=== PATIENT | male | born 1955 | race Caucasian/White ===

== ENCOUNTER → 2017-08-29 | Outpatient (CLI) | payer MEDICAID | LOC: FIMAGING 09:23 | PROVIDERS: ATTEND Internal Medicine | DX: K44.9 Diaphragmatic hernia without obstruction or gangrene (principal); K21.9 Gastro-esophageal reflux disease without esophagitis ==

== ENCOUNTER → 2017-09-04 | Outpatient (CLI) | payer MEDICAID | LOC: FIMAGING 08:00 | PROVIDERS: ATTEND Internal Medicine | DX: R10.12 Left upper quadrant pain (principal) ==

== ENCOUNTER → 2018-06-11 | Outpatient (CLI) | payer MEDICAID ==
[~2018-06-11] MED LIST: IOPAMIDOL (ISOVUE 370) 100 ML BTL IV ONE
== END ==
LOC: FIMAGING 09:04
PROVIDERS: ATTEND Internal Medicine Cardiovascular Disease
DX: I48.91 Unspecified atrial fibrillation (principal)
CPT/HCPCS: Q9967

== ENCOUNTER 2018-06-18 11:04 | Observation (INO) | payer MEDICAID ==
[2018-06-18] MEDS ORDERED: NS 1,000 ML IV ONE (11:06)
[2018-06-18 11:47] LABS: PLATELET COUNT 243 10^3/uL (150-400)
[2018-06-18] MEDS ORDERED: LIDOCAINE 1% 300 MG/30 ML SDV ONE ×2 (12:02→13:26)
[2018-06-18] MEDS ORDERED: HEPARIN/DEXTROSE 25,000 UNIT/500 ML BAG ONE (12:02)
[2018-06-18] MEDS ORDERED: MIDAZOLAM 2 MG/2 ML VIAL IVP ONE (12:03)
[2018-06-18] MEDS ORDERED: IOPAMIDOL (ISOVUE-300) 100 ML BTL ONE (12:03)
[2018-06-18] MEDS ORDERED: HEPARIN 10,000 UNIT/10 ML MDV (1,000 UNIT/ML) ONE (12:03)
[2018-06-18] MEDS ORDERED: BUPIVACAINE 0.75% 10 ML SDV ONE (12:03)
--- NOTE | 2018-06-18 12:03 | PDANEPAE ---
ANE History of Present Illness 62 yo afib ablation ANE Past Medical History - Cardiovascular History Hx Hypertension: No Hx Arrhythmias: Yes Hx Chest Pain: Yes Hx Coronary Artery / Peripheral Vascular Disease: No Hx CHF / Valvular Disease: No Hx Palpitations: No - Pulmonary History Hx COPD: No Hx Asthma/Reactive Airway Disease: No Hx Recent Upper Respiratory Infection: No Hx Oxygen in Use at Home: No Hx Sleep Apnea: No ANE Review of Systems Review of Systems: - Exercise capacity METS (RN): 4 METS ANE Patient History - Allergies Allergies/Adverse Reactions: Penicillins Allergy (Mild, Verified 06/18/18 11:35) Other-Enter Comments black walnut Allergy (Unknown, Verified 12/08/14 15:25) Iodinated Contrast- Oral and IV Dye Allergy (Verified 06/18/18 11:36) Congestion hayfever Allergy (Intermediate, Uncoded 08/22/11 21:50) - Home Medications Home Medications: ALPRAZolam [Xanax 0.5 MG (*)] 0.5 mg PO HS PRN 06/18/18 [Last Taken Unknown] Anastrozole [Arimidex 1 mg (*)] 0.5 mg PO SUTH@12 06/18/18 [Last Taken 06/15/18] Aspirin [Aspirin 325 mg (*)] 325 mg PO DAILY@12 06/18/18 [Last Taken 06/17/18] Cetirizine [ZyrTEC 10 mg (*)] 10 mg PO HS PRN 06/18/18 [Last Taken Unknown] Cholecalciferol Vit D3 [Vitamin D3 (*)] 5,000 units PO DAILY@12 06/18/18 [Last Taken 06/17/18] Fluticasone Nasal [Flonase Nasal [place] (RX)] 1 sprays NASAL BID PRN 06/18/18 [ Last Taken 06/15/18] Herbals/Supplements -Info Only 1 ea PO DAILY 06/18/18 [Last Taken Unknown] Multivitamins [Multivitamin (*)] 1 each PO DAILY@12 06/18/18 [Last Taken ] Niacin [Niacin 500 mg (*)] 500 mg PO DAILY06 06/18/18 [Last Taken 06/17/18] Omeprazole 20 mg PO HS 06/18/18 [Last Taken 06/17/18] Testosterone [ANDROGEL 1% 5gm pkt (*)] 5 gm TD DAILY 06/18/18 [Last Taken ] Thyroid [Latta Thyroid 60 MG (*)] 60 mg PO DAILY06 06/18/18 [Last Taken ] Warfarin Sodium [Coumadin 5MG (*)] 5 mg PO SUMOTUWETHSA@21 06/18/18 [Last Taken 06/15/18] Warfarin Sodium [Coumadin 7.5MG (*)] 7.5 mg PO FR@06/18/18 [Last Taken ] - NPO status NPO Status: no food or drink >8 hours - Smoking Hx Smoking Status: Never smoked ANE Labs/Vital Signs - Labs Result Diagrams: 06/18/18 11:30 06/18/18 11:30 - Vital Signs Height: 5 ft 10.63 in Weight: 97.1 kg ANE Physical Exam - Airway Neck exam: FROM Mallampati Score: Class 2 Mouth exam: normal dental/mouth exam - Pulmonary Pulmonary: no respiratory distress - Cardiovascular Cardiovascular: regular rate and rhythym - ASA Status ASA Status: II ANE Anesthesia Plan Anesthesia Plan: general endotracheal anesthesia
[2018-06-18 12:11] LABS: INR 1.37 (0.83-1.16)
--- NOTE | 2018-06-18 12:22 | PDGENHP ---
History & Physical Chief Complaint: Atrial fibrillation, atrial flutter History of Present Illness: Increasingly symptomatic episodes of PAF and atrial flutter Relevant Physical Exam: General: A&Ox4, no apparent distress. Respiratory: CTA. Cardiac: Regular rate and rhythm, S1, S2. Extremities: Pulses 2+ bilaterally, no edema
[2018-06-18] MEDS ORDERED: fentaNYL 100 MCG/2 ML INJ ONE ×2 (12:25→13:26)
[2018-06-18] MEDS ORDERED: PROPOFOL/EMULSION 500 MG/50 ML BOTTLE IV ONE ×2 (12:25→14:25)
[2018-06-18] MEDS ORDERED: REMIFENTANIL HCL 1 MG VIAL ONE ×2 (12:25→14:25)
[2018-06-18] MEDS ORDERED: ROCURONIUM 100 MG/10 ML VIAL ONE (12:27)
[2018-06-18] MEDS ORDERED: MIDAZOLAM 2 MG/2 ML VIAL ONE (13:26)
[2018-06-18] MEDS ORDERED: IOPAMIDOL (ISOVUE-370) 150 ML BTL IV ONE (13:26)
[2018-06-18] MEDS ORDERED: SUGAMMADEX SODIUM 200 MG/2 ML VIAL IVP ONE (13:47)
--- NOTE | 2018-06-18 14:08 | CPEKG ---
Test Reason : OPEN Blood Pressure : / mmHG Vent. Rate : 059 BPM Atrial Rate : 059 BPM P-R Int : 133 ms QRS Dur : 099 ms QT Int : 419 ms P-R-T Axes : -20 -01 015 degrees QTc Int : 415 ms Sinus rhythm Confirmed by Ramiro Moseley ([id number]) on 06/18/2018 2:07:34 PM Referred By: Confirmed By:Ramiro Moseley
[2018-06-18] MEDS ORDERED: PROTAMINE SULFATE 50 MG/5 ML VIAL IVP ONE (15:23)
[2018-06-18] MEDS ORDERED: ALPRAZolam 0.5 MG TAB PO PRN (15:57)
[2018-06-18] MEDS ORDERED: CETIRIZINE 10 MG TAB PO PRN (15:57)
--- NOTE | 2018-06-18 16:06 | EPPROC ---
Electrophysiology Procedure Note: ELECTROPHYSIOLOGIC STUDY AND BALLOON-CATHETER MEDIATED CRYOABLATION FOR PAROXYSMAL ATRIAL FIBRILLATION AND ATRIAL FLUTTER Procedures performed: 45528-19 EP evaluation with RA/RV/LA pace/record, with arrhythmia induction 62619-49 EP evaluation with RA/RV pace record, insert/reposition catheter, with arrhythmia induction 86913 Atrial fibrillation ablation Second arrhythmia Intracardiac echocardiogram Transseptal puncture Fluoroscopy INDICATION: Paroxysmal atrial fibrillation PROCEDURE: The patient arrived in the Electrophysiology Laboratory in the fasting state. The right groin, left groin and right infraclavicular area were prepped and draped in the usual sterile fashion. Anesthesiologist administered general anesthesia Dr. Dalia Mandel . All catheters were placed percutaneously using the Seldinger technique and advanced into position under fluoroscopic guidance. One #7 American deflectable octapolar electrode catheter was placed in the His-bundle position via the left femoral vein (2mm spacing, IVC electrode for unipolar recordings). This catheter was placed in the coronary sinus after transseptal puncture and later placed in the SVC-R subclavian vein junction to pace the right phrenic nerve during right pulmonary vein ablation. One #8 American AcuNaV ultrasound catheter was placed in the left femoral vein and advanced into the right atrium. Programmed stimulation was performed from the right atrium, left atrium (CS) and right ventricle. There was no evidence of AV accessory pathway. Intracardiac echo evaluation of the left atrium and pulmonary veins was performed. Baseline ACT was drawn and heparin bolus was administered and heparin drip was started prior to transseptal puncture. ACT was checked every 15 minutes and maintained in the range of 350-400 seconds. One 14Fr short sheath was placed in the right femoral vein. One 8Fr SL1 sheath was advanced into the right atrium via the 14Fr short sheath. Transseptal puncture was performed under intracardiac ultrasound, fluoroscopic and hemodynamic guidance placing the sheath into the left atrium. [place] RF needle ( C0 curve) was used. The mean left atrial pressure was 12 mmHg. Pulmonary vein angiogram was done using SL1 sheath. CT angiography of pulmonary veins was done previously. There were distinct LSPV, LIPV, RSPV and RIPV. The SL1 sheath was exchanged for a Medtronic Flexcath sheath using an Amplatz stiff guide wire. A 28 mm Cryoballoon catheter with a 20 mm Achieve catheter was placed via the sheath into the left atrium. Intracardiac ultrasound and PV angiograms were used to assist in placing the mapping catheter at the antrum of the pulmonary veins. All pulmonary veins were isolated successfully using cryoballoon ablation using freeze/thaw/freeze cycles at 2-3-minute intervals, with good [id number] of isolation. Coumadin ridge/Ligament of Jeff region was ablated. Pre and post pulmonary vein recordings were measured on the spiral Achieve catheter to ensure complete pulmonary vein isolation. During the right-sided ablation, phrenic nerve pacing was performed to assess the phrenic nerve strength ( manually and with ICE visualization of liver movement during phrenic capture) and the phrenic nerve was intact throughout the right-sided ablation and at the end of the procedure. An esophageal temperature probe (12 electrode, Circa) was placed by the anesthesiologist at the beginning of the procedure. Esophageal temperature was monitored continuously and cryoablation was interrupted if esophageal temperature was <15 C. Cryoapplications 9 total cryoablation time 1307s. Sheaths were withdrawn into the RA. Mobi sheath was placed. Halo catheter was placed via LFV using long sheath (due to tortuous iliac veins). Ablation was done at CT isthmus achieving bidirectional conduction block. Septal to lateral conduction time 175 ms. ICE imaging post ablation was consistent with pre ablation imaging with no changes noted, moreover there was no left atrial/left ventricular thrombus and no pericardial effusion. The catheters were withdrawn. Protamine was given. Venous vascular access sheaths were removed in the EP lab after placing subcutaneous pursestring suture. There were no complications. The patient was arousable and moving all four extremities at the end of the procedure. CONCLUSIONS: 1. Paroxysmal atrial fibrillation. 2. Successful pulmonary vein isolation procedure (left and right pulmonary vein antrum) using cryoballoon ablation. 3. Atrial flutter, sp cavotricuspid isthmus ablation. Bidirectional block achieved. 4. No apparent complications.
[2018-06-18] MEDS: KETOROLAC 15 MG/1 ML SDV IVP SCH ×2 (16:42→17:16)
--- NOTE | 2018-06-18 18:21 | POSTANESTH ---
Post Anesthetic Evaluation Cardiovascular Status: Normal, Stable Respiratory Status: Normal, Stable Level of Consciousness/Mental Status: Can Participate in Eval Pain Control: Adequate, Prn Tx Ordered Nausea/Vomiting Control: Adequate, Prn Tx Ordered Complications Possibly Related to Anesthesia: None Noted
[2018-06-18] MEDS ORDERED: WARFARIN SODIUM 5 MG TAB PO SCH (22:00)
[2018-06-19 03:12] LABS: PLATELET COUNT 253 10^3/uL (150-400)
[2018-06-19] MEDS ORDERED: THYROID 60 MG TAB PO SCH (06:00)
[2018-06-19] MEDS ORDERED: NIACIN 500 MG TAB PO SCH (06:00)
[2018-06-19] MEDS ORDERED: PANTOPRAZOLE SODIUM 40 MG TAB PO SCH (09:00)
[2018-06-19] MEDS ORDERED: TESTOSTERONE 1% 5 GM GEL PKT TD SCH (09:00)
[2018-06-19] MEDS ORDERED: Herbals/Supplements -Info Only PO SCH (09:00)
--- NOTE | 2018-06-19 09:24 | ECHO ---
[email or web address] [address] Main: [phone] Fax: Transthoracic Echocardiogram Name: ELO METZGER MR#: [id number] Study Date: 06/19/2018 Study Time: 07:44 AM Date of : 1955 Age: 62 year(s) Height: 177.8 cm (70 in.) Weight: 97.07 kg (214 lb.) BSA: 2.15 m2 Gender: Male Examination: Echo Indication: Post EP Image Quality: Contrast: Requested by: Wallace Aguila BP: 118 mmHg/82 mmHg Heart Rate: Rhythm: Normal sinus rhythm with ectopy Indication: Post EP Procedure Staff Customer Support Representative: Hero Benz RDCS Reading Physician: Terrance Padilla MD Requesting Provider: Conclusions: Normal global systolic LV function. EF is 66 %. Diastolic dysfunction is present. . The right atrium is mildly to moderately dilated. No pericardial effusion. Measurements: Chambers Valvular Assessment AV/MV Valvular Assessment TV/PV Normal Normal Normal Name Value Range Name Value Range Name Value Range Ao Lauren (MM): 2.9 cm (2.2 cm-3.7 AV Vmax: 1.49 m/s (1 m/s-1.7 PV Vmax: 0.80 m/s (0.6 m/s-0.9 cm) m/s) m/s) IVSd (2D): 0.8 cm (0.6 cm-1.1 AV maxP mmHg ( - ) PV PGmax: 3 mmHg ( - ) cm) LVOT Vmax: 0.93 m/s (0.7 m/s-1.1 LVDd (2D): 4.9 cm (4.2 cm-5.9 m/s) cm) MV E Vmax: 0.67 m/s ( - ) LVDs (2D): 3.1 cm (2.1 cm-4 MV A Vmax: 0.70 m/s ( - ) cm) MV E/A: 0.96 ( - ) LVPWd (2D): 1.3 cm (0.6 cm-1 cm) LVEF (2D): 66 (>=54 %) RVDd(2D): 4.5 cm (1.9 cm-3.8 cmmm) Continued Measurements: Chambers Valvular Assessment AV/MV Name Value Name Value LADs Lon.0 cm MV E' Septal: 0.09 m/s LA Area: 19.7 cm2 MV E/E' Septal: 7.20 Patient: ELO METZGER Study Date: 06/19/2018 Page 1 of 2 07:44 AM LA Volume: 61 ml MV E/E' Lateral: 8.90 LA Volume Index: 28.4 ml/m2 Findings: Left Ventricle: Normal size left ventricle. No LV hypertrophy. Normal global systolic LV function. EF is 66 %. No regional wall motion abnormality. Diastolic dysfunction is present. . Right Ventricle: Upper normal size right ventricle. Normal RV function. Left Atrium: The left atrium is normal in size. Right Atrium: The right atrium is mildly to moderately dilated. Mitral Valve: The mitral valve is normal in appearance and function. There is no significant mitral valve regurgitation. Aortic Valve: The aortic valve is normal in appearance and function. There is no significant aortic valve regurgitation. No aortic valve stenosis is present. Tricuspid Valve: The tricuspid valve is normal in appearance and function. There is no significant tricuspid valve regurgitation. Pulmonic Valve: The pulmonic valve is normal in appearance and function. Aorta: The aorta is normal. Pericardium: No pericardial effusion. Exam Comments: Ectopy noted during exam.. (No Signature Object) Patient: ELO METZGER Study Date: 06/19/2018 Page 2 of 2 07:44 AM [id number]
[2018-06-19 10:09] VITALS: BP 117/76
[2018-06-19] MEDS ORDERED: ANASTROZOLE 1 MG TAB PO SCH (12:00)
[2018-06-19] MEDS ORDERED: MULTIVITAMINS 1 EACH TAB PO SCH (12:00)
[2018-06-19] MEDS ORDERED: CHOLECALCIFEROL VIT D3 1,000 UNITS TAB PO SCH (12:00)
--- NOTE | 2018-06-19 18:57 | GDS ---
SUPERVISING SCHEDULE ANNOUNCER: Dr. Terrance Padilla. ADMISSION DIAGNOSES: Atrial fibrillation and atrial flutter. DISCHARGE DIAGNOSES: Atrial fibrillation and atrial flutter status post successful catheter mediated ablation. PROCEDURES PERFORMED DURING HOSPITALIZATION: 1. Electrophysiology study. 2. Balloon catheter mediated cryoablation for paroxysmal atrial fibrillation and atrial flutter. 3. Echocardiogram. 4. Electrocardiogram. HOSPITAL COURSE: The patient presented June 18, 2018, for atrial fibrillation and atrial flutter ablation in the setting of increasingly symptomatic episodes of paroxysmal atrial fibrillation and atrial flutter. He underwent successful catheter mediated ablation of both his atrial fibrillation and atrial flutter with Dr. Terrance Padilla without intra procedure complications. He did experience chest discomfort in the postprocedure period and this was treated successfully with IV Toradol. He has done very well overnight without issues or concerns and is ambulating in his room this morning without issue. He reports feeling very well without recurrence of chest discomfort or other concerning symptoms today. He is appropriate and stable for discharge home today. PHYSICAL EXAMINATION: GENERAL: Alert and oriented x4. No apparent distress. VITAL SIGNS: Blood pressure is 117/76, heart rate is 77, SpO2 is 94% on room air. Temp is 36.9. LUNGS: Clear to auscultation without adventitious breath sounds. No rhonchi, rales, or wheezes. CARDIAC: Normal S1, S2. No S3, S4, or murmurs. Rhythm is regular. ABDOMEN: Normoactive bowel sounds times all 4 quadrants, no masses or tenderness. SKIN: [place], warm, and dry without cyanosis , clubbing, or peripheral edema. EXTREMITIES: Bilateral pursestring sutures removed intact without evidence of hematoma, redness, oozing, swelling or warmth , pulses 2+ bilaterally, no edema. LABORATORY STUDIES: Drawn today. CBC and BMP are stable, troponin is 10.7, this is to be expected in the postprocedure setting. PROCEDURES: Electrophysiology study, atrial flutter and atrial fibrillation ablation as mentioned above. Preliminary echocardiogram done this morning demonstrates normal left ventricular systolic function without new wall motion abnormalities or pericardial effusion. Electrocardiogram this morning demonstrates normal sinus rhythm without new ST or T-wave abnormalities and normal P-R intervals. DISCHARGE DISPOSITION: Patient is discharged home in stable condition. He is under activity restrictions as below. DISCHARGE MEDICATIONS: Please see discharge medication reconciliation sheet for full details. Please note that he has been restarted on his Coumadin and he will continue omeprazole for the next 6 weeks. DISCHARGE INSTRUCTIONS: Post atrial flutter and atrial fibrillation ablation instructions reviewed with patient in detail. We discussed activity restrictions including lifting no more than 10 pounds and avoidance of submerged bathing for 10 days. He will get up and walk around every 45 minutes for 45 days. He will avoid unpressurized air travel or scuba diving for the next 6 months and will present to our clinic for an echocardiogram prior to engaging in either of these activities. We also reviewed bleeding precautions, medication compliance, monitoring for signs or symptoms of infection, monitoring for atrio-esophageal fistula, and recommendations to contact our clinic for any sustained arrhythmias. At the time of discharge, he verbalized understanding regarding all discharge instructions without questions or concerns. He has a followup visit scheduled with Dr. Padilla in 3-4 weeks and he will contact the clinic with any new or concerning symptoms prior to his upcoming visit. Greater than 30 minutes spent with this discharge. /[id number]/MODL MTDD
--- NOTE | 2018-06-20 17:31 | CPEKG ---
Test Reason : OPEN Blood Pressure : / mmHG Vent. Rate : 104 BPM Atrial Rate : 103 BPM P-R Int : 176 ms QRS Dur : 106 ms QT Int : 375 ms P-R-T Axes : 046 023 001 degrees QTc Int : 494 ms Sinus tachycardia Multiple premature complexes, vent & supraven Low voltage, precordial leads Borderline prolonged QT interval Confirmed by Ramiro Moseley ([id number]) on 06/20/2018 5:30:39 PM Referred By: Confirmed By:Ramiro Moseley
[2018-06-20] MEDS ORDERED: WARFARIN SODIUM 7.5 MG TAB PO SCH (21:00)
== END 2018-06-19 12:35 | disposition home or self-care (01) ==
LOC: FCATH 11:04 → F2N 15:55
PROVIDERS: ADMIT Registered Nurse; ATTEND Internal Medicine Cardiovascular Disease
PROC: 02583ZZ Destruction of Conduction Mechanism, Percutaneous Approach (ICD-10-PCS; principal; 2018-06-18)
PROC: 02H73MZ Insertion of Cardiac Lead into Left Atrium, Percutaneous Approach (ICD-10-PCS; principal; 2018-06-18)
PROC: B2161ZZ Fluoroscopy of Right and Left Heart using Low Osmolar Contrast (ICD-10-PCS; principal; 2018-06-18)
PROC: B244YZZ Ultrasonography of Right Heart using Other Contrast (ICD-10-PCS; principal; 2018-06-18)
PROC: 025T3ZZ Destruction of Left Pulmonary Vein, Percutaneous Approach (ICD-10-PCS; principal; 2018-06-18)
PROC: 02K83ZZ Map Conduction Mechanism, Percutaneous Approach (ICD-10-PCS; principal; 2018-06-18)
DX: I48.0 Paroxysmal atrial fibrillation (principal); I48.92 Unspecified atrial flutter; E78.00 Pure hypercholesterolemia, unspecified; I25.10 Atherosclerotic heart disease of native coronary artery without angina pectoris
CPT/HCPCS: 93005; 93306; 93312; 93613; 93655; 93656; 93662; C1893; G0378; C1730; C1731; C1732; C1733; C1759; C1766; J1644; J1885; J2250; J2704; J2720; J3010; Q9967

== ENCOUNTER → 2018-07-16 | Outpatient (CLI) | payer MEDICAID | LOC: FIMAGING 10:26 | PROVIDERS: ATTEND Internal Medicine Cardiovascular Disease | DX: R13.10 Dysphagia, unspecified (principal); J98.11 Atelectasis; I25.10 Atherosclerotic heart disease of native coronary artery without angina pectoris ==